=== PATIENT | female | born 1990 | race Two or more races ===

== ENCOUNTER 2020-06-16 11:24 | Outpatient (CLI) | payer OTHER | END 2020-06-16 12:50 | disposition home or self-care (01) | LOC: OFIC 805 11:24 | PROVIDERS: ATTEND Otolaryngology | DX: H74.8X3 Other specified disorders of middle ear and mastoid, bilateral (principal); R07.0 Pain in throat; H92.01 Otalgia, right ear ==

== ENCOUNTER → 2020-07-29 | Outpatient (CLI) | payer OTHER | END | disposition home or self-care (01) | LOC: OFIC 805 09:00 | PROVIDERS: ATTEND Otolaryngology | DX: R09.81 Nasal congestion (principal); H66.92 Otitis media, unspecified, left ear; H93.8X2 Other specified disorders of left ear; H91.8X2 Other specified hearing loss, left ear ==

== ENCOUNTER 2020-08-11 11:28 | Outpatient (CLI) | payer OTHER | END 2020-08-11 11:45 | disposition home or self-care (01) | LOC: OFIC 805 11:28 | PROVIDERS: ATTEND Otolaryngology | DX: H91.8X1 Other specified hearing loss, right ear (principal); H74.8X1 Other specified disorders of right middle ear and mastoid; R09.81 Nasal congestion; R07.0 Pain in throat; H92.01 Otalgia, right ear; H93.8X1 Other specified disorders of right ear; H66.91 Otitis media, unspecified, right ear ==

== ENCOUNTER 2022-12-06 13:45 | Inpatient (IN) | payer OTHER ==
[~2022-12-06] VITALS: Ht 175.3 cm; Wt 84.8 kg
[2022-12-13] MEDS ORDERED: PRENATAL 19 CH1 EACH PO (06:59)
== END 2022-12-15 15:40 | disposition home or self-care (01) | DRG 807 ==
LOC: LDR 12-13 04:30 → OB/GYN 12-14 01:16
PROVIDERS: ADMIT Obstetrics & Gynecology; ATTEND Obstetrics & Gynecology
PROC: 10E0XZZ Delivery of Products of Conception, External Approach (ICD-10-PCS; principal; 2022-12-13)
PROC: 0W8NXZZ Division of Female Perineum, External Approach (ICD-10-PCS; 2022-12-13)
PROC: 4A1HXCZ Monitoring of Products of Conception, Cardiac Rate, External Approach (ICD-10-PCS; 2022-12-13)
DX: O80 Encounter for full-term uncomplicated delivery (principal); Z37.0 Single live birth; Z3A.38 38 weeks gestation of pregnancy; Z20.822 Contact with and (suspected) exposure to COVID-19

== ENCOUNTER 2022-12-11 12:41 | Outpatient (CLI) | payer OTHER | END 2022-12-11 14:30 | disposition home or self-care (01) | LOC: NST 12:41 | PROVIDERS: ATTEND Obstetrics & Gynecology Gynecology | DX: Z34.83 Encounter for supervision of other normal pregnancy, third trimester (principal) ==